=== PATIENT | male | born 1995 | race Caucasian/White ===

== ENCOUNTER 2021-03-08 19:35 | Emergency (ER) | payer OTHER ==
[2021-03-08] MEDS ORDERED: SOME ANTIBIOTIC (19:53)
[2021-03-08 21:48] VITALS: BP 122/74
== END 2021-03-08 21:49 | disposition home or self-care (01) ==
LOC: ED 19:35
DX: K04.7 Periapical abscess without sinus (principal); Z88.0 Allergy status to penicillin
CPT/HCPCS: J0696; J1885

== ENCOUNTER 2022-12-14 21:09 | Emergency (ER) | payer SELFPAY ==
[~2022-12-14] VITALS: Ht 170.2 cm; Wt 62.2 kg
[~2022-12-14 21:09] MED LIST: SOME ANTIBIOTIC
[2022-12-14 22:19] LABS: BASO # 0.01 K/mm3 (0.02-0.10); HEMATOCRIT 43.7 % (42.0-52.0); HEMOGLOBIN 15.4 g/dL (13.5-18.0); LYMPH# 2.75 K/mm3 (1.50-4.00); MEAN CELL VOLUME 91 fl (78-100); MEAN CORPUSCULAR HEMOGLOBIN 32 pg (27-31); MEAN CORPUSCULAR HGB CONC 35 g/dL (33-37); MEAN PLATELET VOLUME 10.9 fl (7.4-10.4); MONO # 0.25 K/mm3 (0.20-0.80); NEU # 2.39 K/mm3 (1.40-6.50); RED BLOOD COUNT 4.83 M/mm3 (4.20-5.60); RED CELL DISTRIBUTION WIDTH 11.5 % (11.5-14.5); WHITE BLOOD COUNT 5.4 K/mm3 (4.8-10.8)
[2022-12-14 22:26] LABS: ALBUMIN 3.9 g/dL (3.5-5.0)
[2022-12-14 22:29] LABS: TOTAL PROTEIN 6.2 g/dL (6.4-8.3)
[2022-12-14 22:31] LABS: TOTAL BILIRUBIN 0.6 mg/dL (0.2-1.2)
[2022-12-14 22:37] LABS: PLATELET COUNT 91 K/mm3 (130-400)
[2022-12-14] MEDS ORDERED: ONDANSETRON HYDR4 MG PO (23:53)
[2022-12-15 00:14] VITALS: BP 105/58
== END 2022-12-15 00:14 | disposition home or self-care (01) ==
LOC: ED 21:09
PROVIDERS: Physician Assistant
DX: K52.9 Noninfective gastroenteritis and colitis, unspecified (principal); Z28.310 Unvaccinated for COVID-19
CPT/HCPCS: J2405; J7030